=== PATIENT | female | born 1965 | race Two or more races ===

== ENCOUNTER 2022-07-29 07:00 | Inpatient (IN) | payer OTHER ==
[2022-07-29] MEDS ORDERED: CANDESARTAN-HC1 EAC1 PO (08:16)
[2022-07-29] MEDS ORDERED: SIMVASTATIN (08:17)
[2022-07-29] MEDS ORDERED: PLAVIX75 MG (08:17)
[2022-08-06] MEDS ORDERED: SIMVASTATIN20 MG (14:43)
== END 2022-08-08 14:34 | DRG 470 ==
LOC: O/R 08-06 05:30 → SURG 08-06 07:00
PROVIDERS: ADMIT Orthopaedic Surgery; ATTEND Orthopaedic Surgery
PROC: 0SRC0J9 Replacement of Right Knee Joint with Synthetic Substitute, Cemented, Open Approach (ICD-10-PCS; principal; 2022-08-06 07:00)
DX: M17.11 Unilateral primary osteoarthritis, right knee (principal); D62 Acute posthemorrhagic anemia; M85.661 Other cyst of bone, right lower leg; M65.9 Synovitis and tenosynovitis, unspecified; Z96.651 Presence of right artificial knee joint; Z20.822 Contact with and (suspected) exposure to COVID-19

== ENCOUNTER 2023-05-20 07:14 | Day surgery (SDC) | payer OTHER ==
[~2023-05-20] VITALS: Ht 157.5 cm; Wt 87.1 kg
[~2023-05-20 07:14] MED LIST: ATACAND HCT 321 EAC1 PO; CANDESARTAN-HC1 EAC1 PO; PLAVIX75 MG; SIMVASTATIN; SIMVASTATIN20 MG
== END 2023-05-20 22:15 | disposition home or self-care (01) ==
LOC: CIR.AMB 07:14
PROVIDERS: ATTEND Orthopaedic Surgery Hand Surgery
DX: M24.831 Other specific joint derangements of right wrist, not elsewhere classified (principal); Z20.822 Contact with and (suspected) exposure to COVID-19; E11.9 Type 2 diabetes mellitus without complications; E78.00 Pure hypercholesterolemia, unspecified; I10 Essential (primary) hypertension; Z88.6 Allergy status to analgesic agent; Z88.0 Allergy status to penicillin

== ENCOUNTER 2025-06-21 08:02 | Day surgery (SDC) | payer OTHER ==
[2025-06-16 10:13] LABS: URINE APPEARANCE Clear; URINE BILIRRUBIN Negative (NEGATIVE); URINE BLOOD Trace; URINE COLOR Yellow; URINE GLUCOSE Negative (NEGATIVE); URINE KETONE Negative (NEGATIVE); URINE LEUKOCYTE Negative; URINE NITRATE Negative; URINE PROTEIN Negative (NEGATIVE); URINE UROBILINOGEN 0.2 E.U./dl
[2025-06-16 10:15] LABS: BASO % 1.8 % (0.1-1.2); EOS # 0.38 (0.04-0.54); EOS % 5.6 % (0.7-7.0); LYMPH # 2.18 (1.18-3.74); LYMPH % 32.2 % (19.3-53.1); MEAN PLATELET VOLUME 11.40 fl (9.4-12.4); MONO # 0.69 (0.24-0.82); MONO % 10.2 % (4.7-12.5); NEUT # 3.37 (1.56-6.13); NEUT % 49.9 % (34.0-71.1); RED CELL DISTRIBUTION WIDTH 15.2 % (11.6-14.4)
[2025-06-16 10:20] LABS: URINE BACTERIA 44.4 uL (0.0-1933); URINE EPITHELIAL CELLS 2.1 uL (0.0-38.8); URINE RBC 12.7 uL (0.0-20.8); URINE WBC 4.6 uL (0.0-23.2)
[2025-06-16 10:22] LABS: URINE CAST 0.14 uL (0.0-1.40)
[2025-06-16 10:44] LABS: INR 0.99
[2025-06-16 10:53] LABS: ALT/SGPT 27.0 U/L (12-78); AST/SGOT 18.0 U/L (15-37); BILIRUBIN TOTAL 0.76 mg/dL (0.3-1.2); BUN CREA RATIO 25.0 (7.0-25.0); CREATININE SERUM 0.63 mg/dL (0.55-1.02); GFR 95.75; GLOBULINA 3.5 G/DL (2.4-3.5); GLUCOSE FASTING 83.0 mg/dL (65-100); OSMOLALITY SERUM 289.0 MOSM/KG (275-295)
[2025-06-16 14:14] VITALS: BP 160/90
[~2025-06-21 08:02] MED LIST changes: +NEXIUM40 M1
[2025-06-21] MEDS ORDERED: PROMETHAZINE HCL 25 MG/ML AMPUL IV STA (12:37)
[2025-06-21] MEDS ORDERED: MEPERIDINE HCL/PF 25 MG/ML VIAL IV STA (12:37)
[2025-06-21] MEDS ORDERED: PERCOCET 5-3251 EACH PO (12:40)
[2025-06-21] MEDS ORDERED: EPINEPHRINE HCL/PF 1 MG/ML AMPUL IR ONE (13:15)
[2025-06-21] MEDS ORDERED: CHLORHEXIDINE GLUCONATE 120 ML BOTTLE TOP ONE ×2 (13:15)
[2025-06-21] MEDS ORDERED: BUPIVACAINE HCL 30 ML VIAL IJ ONE (13:15)
[2025-06-21] MEDS ORDERED: TRIAMCINOLONE ACETONIDE 40 MG/ML VIAL IJ ONE (13:15)
[2025-06-21] MEDS ORDERED: FAMOTIDINE/PF 20 MG/2 ML VIAL IV PUSH ONE (13:30)
== END 2025-06-21 17:50 | disposition home or self-care (01) ==
LOC: CIR.AMB 08:02
PROVIDERS: ATTEND Orthopaedic Surgery
DX: S83.201A Bucket-handle tear of unspecified meniscus, current injury, left knee, initial encounter (principal); M67.52 Plica syndrome, left knee; M22.42 Chondromalacia patellae, left knee

== ENCOUNTER 2025-06-25 12:55 | Emergency (ER) | payer OTHER ==
[~2025-06-25] VITALS: Ht 157.5 cm; Wt 94.8 kg
[~2025-06-25 12:55] MED LIST changes: +PERCOCET 5-3251 EACH PO
[2025-06-25] MEDS ORDERED: MORPHINE SULFATE 2 MG/ML SYRINGE IV ONE (14:30)
[2025-06-25] MEDS ORDERED: OxyCODONE HCL 5 MG TABLET (ROXICODONE) PO ONE (15:15)
[2025-06-25] MEDS ORDERED: MAG HYDROX/ALUMINUM HYD/SIMETH 30 ML BLIST.PACK PO ONE (15:45)
[2025-06-25] MEDS ORDERED: ACETAMINOPHEN WITH CODEINE 1 UDTAB TABLET PO ONE (15:45)
[2025-06-25] MEDS ORDERED: NORFLEX100MG PO (18:09)
[2025-06-25] MEDS ORDERED: FAMOtidine 10 MG/ML (4ML VIAL) IV PUSH ONE (18:30)
== END 2025-06-25 20:13 | disposition home or self-care (01) ==
LOC: ER 12:55
DX: R51.9 Headache, unspecified (principal); I10 Essential (primary) hypertension; Z88.0 Allergy status to penicillin; Z88.1 Allergy status to other antibiotic agents; Z88.6 Allergy status to analgesic agent; Z91.018 Allergy to other foods
CPT/HCPCS: 96365; 99282; J2270; J3490

== ENCOUNTER 2025-08-14 20:40 | Emergency (ER) | payer OTHER ==
[~2025-08-14] VITALS: Ht 157.5 cm; Wt 95.3 kg
[~2025-08-14 20:40] MED LIST changes: +NORFLEX100MG PO
[2025-08-14] MEDS ORDERED: FAMOTIDINE40 MG PO (21:45)
[2025-08-14] MEDS ORDERED: ROSUVASTATIN CA10 MG PO (21:45)
[2025-08-14] MEDS ORDERED: ORPHENADRINE CITRATE 30 MG/ML AMPUL IM ONE (22:30)
[2025-08-14] MEDS ORDERED: ORPHENADRINE CITRATE 30 MG/ML AMPUL ONE (22:40)
== END 2025-08-14 23:42 | disposition home or self-care (01) ==
LOC: ER 20:41
DX: S80.02XA Contusion of left knee, initial encounter (principal); S80.01XA Contusion of right knee, initial encounter; S60.221A Contusion of right hand, initial encounter; W19.XXXA Unspecified fall, initial encounter; Y93.89 Activity, other specified; Y92.89 Other specified places as the place of occurrence of the external cause; Y99.9 Unspecified external cause status; I10 Essential (primary) hypertension; Z88.8 Allergy status to other drugs, medicaments and biological substances; Z88.6 Allergy status to analgesic agent; Z91.013 Allergy to seafood
CPT/HCPCS: 73120; 73560; 96372; 99283; J2360